=== PATIENT | male | born 1980 | race Caucasian/White ===

== ENCOUNTER 2020-11-24 03:25 | Outpatient (CLI) | payer OTHER, SELFPAY ==
[2020-11-24 07:58] LABS: Hemoglobin A1C 5.7 % (<5.7)
[2020-11-24 08:48] LABS: Calculated LDL 133 mg/dL (<100); Cholesterol 186 mg/dL (<200); HDL Cholesterol 39 mg/dL (40-60); Triglyceride 73 mg/dL (<150)
== END 2020-11-24 03:26 | disposition home or self-care (01) ==
LOC: LBO 03:25
PROVIDERS: PCP Nurse Practitioner Family; Visit Provider Nurse Practitioner Family
DX: Z13.220 Encounter for screening for lipoid disorders (principal); Z13.1 Encounter for screening for diabetes mellitus
CPT/HCPCS: 36415; 80061; 82565; 83036

== ENCOUNTER 2022-02-14 03:21 | Outpatient (CLI) | payer OTHER, SELFPAY ==
[2022-02-14 12:39] LABS: Abs Immature Grans 0.02 10^3/uL (0.0-0.06); Absolute Basophil Count 0.06 10^3/uL (0.0-0.2); Absolute Eosinophil Count 0.19 10^3/uL (0.0-0.7); Absolute Lymphocyte Count 2.22 10^3/uL (1.2-3.4); Absolute Monocyte Count 0.82 10^3/uL (0.1-0.8); Absolute Neutrophil Count 4.53 10^3/uL (1.2-6.7); Basophils % 0.8; Eosinophils % 2.4; HCT 46.9 % (40.0-50.0); HGB 15.2 g/dL (13.5-17.5); Immature Grans % 0.3; Lymphocytes % 28.3; MCH 29.1 pg (27.0-33.0); MCHC 32.4 % (32.0-36.0); MCV 90 fL (80-95); MPV 10.4 fL (8.0-11.0); Monocytes % 10.5; Neutrophils % 57.7; Platelet Count 342 10^3/uL (130-400); RBC 5.22 10^6/uL (4.36-5.78); RDW 12.1 % (11.8-14.1); RDW-SD 39.8 fL; WBC 7.84 10^3/uL (4.4-10.8)
[2022-02-14 13:52] LABS: ALT 56 U/L (16-63); AST 25 U/L (15-37); Albumin 4.7 g/dL (3.4-5.0); Alkaline Phosphatase 74 U/L (46-116); Anion Gap 10.5 mmol/L (3-11); BUN 17 mg/dL (7-18); Bilirubin, Total 0.6 mg/dL (0.2-1.0); CO2 26.5 mmol/L (21.0-32.0); CREATININE 1.1 mg/dL (0.70-1.30); Calcium 9.4 mg/dL (8.5-10.1); Chloride 102 mmol/L (98-107); Glucose 112 mg/dL (74-106); Potassium 4.5 mmol/L (3.5-5.1); Sodium 139 mmol/L (136-145); TSH 1.69 uIU/mL (0.36-3.74); Total Protein 7.9 g/dL (6.4-8.2)
[2022-02-21 19:12] LABS: AM Cortisol 7.5 mcg/dL (5-25); Cortisol, Free 0.278 mcg/dL
== END 2022-02-14 03:22 | disposition home or self-care (01) ==
LOC: LOS 03:21
PROVIDERS: PCP Nurse Practitioner Family; Visit Provider Nurse Practitioner Family
DX: R63.5 Abnormal weight gain (principal); R53.83 Other fatigue
CPT/HCPCS: 36415; 80053; 82530; 82533; 84443; 85025

== ENCOUNTER 2023-11-21 01:27 | Outpatient (CLI) | payer OTHER, SELFPAY ==
[2023-11-21 13:27] LABS: Calculated LDL 124 mg/dL (<100); Cholesterol 196 mg/dL (<200); HDL Cholesterol 40 mg/dL (40-60); Triglyceride 164 mg/dL (<150)
[2023-11-21 17:50] LABS: PSA, Screening 1.5 ng/mL (<=2.5)
== END 2023-11-21 01:28 | disposition home or self-care (01) ==
PROVIDERS: PCP Nurse Practitioner Family; Visit Provider Nurse Practitioner Family
DX: Z12.5 Encounter for screening for malignant neoplasm of prostate (principal); Z13.220 Encounter for screening for lipoid disorders
CPT/HCPCS: 36415; 80061; 84153

== ENCOUNTER 2025-02-01 03:52 | Outpatient (CLI) | payer OTHER, SELFPAY ==
[2025-02-01 12:52] LABS: Hemoglobin A1C 5.6 % (<5.7)
[2025-02-01 21:17] LABS: Calculated LDL 129 mg/dL (<100); Cholesterol 211 mg/dL (<200); HDL Cholesterol 37 mg/dL (>or=40); Triglyceride 227 mg/dL (<150)
== END 2025-02-01 03:53 | disposition home or self-care (01) ==
LOC: LOS 03:52
PROVIDERS: PCP Nurse Practitioner Family; Visit Provider Nurse Practitioner Family
DX: Z13.1 Encounter for screening for diabetes mellitus (principal); Z13.220 Encounter for screening for lipoid disorders
CPT/HCPCS: 36415; 80061; 83036